=== PATIENT | female | born 1980 | race Caucasian/White ===

== ENCOUNTER 2016-08-16 12:01 | Inpatient (IN) | payer OTHER ==
[~2016-08-16] VITALS: Ht 167.6 cm; Wt 94.8 kg
[2016-08-16 14:25] LABS: ABSOLUTE BASOPHIL COUNT 0 /CUMM (0.0-0.2); ABSOLUTE EOSINOPHIL COUNT 0 /CUMM (0.0-0.7); ABSOLUTE GRANULOCYTE CT 6.6 /CUMM (1.4-6.5); ABSOLUTE LYMPH COUNT 1.9 /CUMM (1.2-3.4); ABSOLUTE MONOCYTE COUNT 0.4 /CUMM (0.10-0.60); BASOPHIL % 0.3 % (0.0-2.0); EOSINOPHIL % 0.5 % (0-5); GRANULOCYTE % 73.6 % (42.2-75.2); HEMATOCRIT 35.1 % (37-47); MEAN CORPUSCULAR HGB CONC 33.3 G/DL (33.0-37.0); MEAN PLATELET VOLUME 9.8 FL (7.4-10.4); PLATELET COUNT 154 /CUMM (130-400); RBC DISTRIBUTION WIDTH 16.2 % (11.5-14.5); RED BLOOD CELL CT 4.03 /CUMM (4.20-5.40); WHITE BLOOD CELL COUNT 8.9 /CUMM (4.8-10.8)
--- NOTE | 2016-08-16 15:30 | PN- OBGYN ---
Surgical Brief Attending Note Brief Attending Note: 36 year old @ 40+5 weeks. planned IOL for the am. Sent from office for nonreactive NST. Pt had BPP 8/8. Upon monitoring, FHR reactive, cat 1. baseline 140s. cvx 1/50/post/soft /-2Pt counseled on cervical ripening and was agreeable. Cheung balloon attempted x 2 but unsuccessful. Pt with low tolerance to speculum and digital exams. Misoprostol 25 micrograms placed .
--- NOTE | 2016-08-16 16:01 | History & Physical ---
General Information and HPI MD Statement: I have seen and personally examined MACIE SCHAEFER and documented this H&P. The patient is a 36 year old female at [40+] weeks and [5] days gestation who presented with a chief complaint of [prolonged monitoring]. Source of Information: patient Exam Limitations: no limitations History of Present Illness: 36 year old female. Presents for prolonged monitoring. Had a BPP in office 03/14 for AMA. NST was nonreactive. Sent to [facility] for further monitoring. Scheduled for IOL in AM with Dr. Escoto. Per Dr. Escoto, cervix 1cm, post. Allergies/Medications Allergies: Coded Allergies: avocado (Severe, 08/16/16) banana (Severe, SWELLING 08/16/16) Uncoded Allergies: Allergy Other N Food Allergies BANNANAS AND AVACADO EYES SWELL Med Allergies N Compliance With Home Meds: GOOD Past History warp scouring vat tender History : 5 Para: 2 Last Menstrual Period: 4.2.16 Estimated Delivery Date: 08.11.16 Past warp scouring vat tender History: x 2, largest 7'10 Medical History Blood Transfusion Hx: No Neurological: NONE Cardiovascular: NONE Respiratory: asthma, asthma Dx in high school. inhaler prn. Gastrointestinal: NONE Hepatic: NONE Renal: NONE Musculoskeletal: NONE Psychiatric: NONE Endocrine: NONE Surgical History Pertinent Surgical History: none Past Family/Social History Psychosocial History Smoking Status: Never Smoked Review of Systems Review of Systems Constitutional: Reports: no symptoms. EENTM: Reports: no symptoms. Cardiovascular: Reports: no symptoms. Respiratory: Reports: no symptoms. GI: Reports: no symptoms. Genitourinary: Reports: see HPI. Musculoskeletal: Reports: no symptoms. Skin: Reports: no symptoms. Neurological/Psychological: Reports: no symptoms. Hematologic/Endocrine: Reports: no symptoms. Immunologic/Allergic: Reports: no symptoms. All Other Systems: Reviewed and Negative Exam & Diagnostic Data Last 24 Hrs of Vital Signs/I&O Intake & Output 08/16 1600 08/16 0800 08/16 0000 Intake Total Output Total Balance Patient 209 lb Weight Obstetric Exam Wgt Gained During : 45 Pelvimetry: proven to 7'10" Dilation (cm): 1 Effacement (%): 50 Station: -2 Membranes: intact Fluid: unknown Fundal Height (cm): 40 Multiple Gestation? No Contractions: occ #1 - FHR Baseline: 140 Category: 1 Estimated Weight: 81/2 lbs Presentation: vtx Patient for Induction? Yes Gan Score Gan Score Response Value Cervix Position: posterior 0 Cervix Consistency: soft 2 Cervix Effacement: 30-50% 1 Cervix Dilation: 1-2 cm 1 Total 4 Physical Exam General Appearance Alert, Oriented X3, Cooperative, No Acute Distress Cardiovascular Regular Rate Lungs Normal Air Movement Abdomen Soft, No Tenderness, gravid Neurological Normal Gait, Normal Speech, Strength at 5/5 X4 Ext Extremities No Clubbing, No Cyanosis, No Edema Reproductive (FEMALE) Normal female genitalia Labs Blood Type & Rh: Apos Antibody Screen: neg Hct/Hgb & Platelets #1: 12.8 39.3 234 Hct/Hgb & Platelets #2: 10.2 30.9 177 Rubella: imm VDRL #1: neg VDRL #2: neg HbsAg: neg HIV #1: neg HIV #2 neg 1 Hr P 3 Hr PG: wnl Group B Strep: neg Initial Ultrasound: 8.4 Anatomy Ultrasound: 20.3, post federico, nl anatomy, XY Genetic Testing: MSAFP neg for NTD, neg NT, nl hgb elec Last 24 Hrs of Labs/Candelario: Laboratory Tests 08/16/16 1400: CBC w Diff NO MAN DIFF REQ, RBC 4.03 L, MCV 87.0, MCH 29.0, RDW 16.2 H, MPV 9.8, Gran % 73.6, Lymphocytes % 21.1, Monocytes % 4.5, Eosinophils % 0.5, Basophils % 0.3, Absolute Granulocytes 6.6 H, Absolute Lymphocytes 1.9, Absolute Monocytes 0.4, Absolute Eosinophils 0, Absolute Basophils 0, PUBS MCHC 33.3 08/16/16 1230: Urinalysis LIGHT H, Urine Color YEL, Urine Clarity CLEAR, Urine pH 6.5, Ur Specific Martin 1.010, Urine Protein NEG, Urine Ketones NEG, Urine Nitrite NEG, Urine Bilirubin NEG, Urine Urobilinogen 0.2, Ur Leukocyte Esterase TRACE H, Ur Microscopic SEDIMENT EXAMINED, Urine RBC RARE, Urine WBC RARE, Ur Epithelial Cells RARE, Urine Hemoglobin NEG, Urine Glucose NEG Assessment/Plan Assessment/Plan: 36 year old female. 40+5 weeks. Elective IOL for prolonged . remarkable for AMA and abnormal 1 hr GTT but nl 3hr. Patient counseled on r/b/a of cervical ripening and induction of labor including persistent contractions. If at any time, persistent contractions that do not resolve and cause distress, may need a delivery. Questions answered. Desired to proceed. I attempted to place david balloon catheter x 2 but pt did not tolerate well. Misoprostol was then inserted instead. As Ranked By This Provider Problem List: 1. Core Measures/Miscellaneous Venous Thromboembolism VTE Risk Factors: / VTE Contraindications: No Contraindications VTE Prophylaxis Ordered Inpt: Early Ambulation VTE Diagnosis: No Beta Aiden Is Beta Aiden a Home Med? No Antibiotics Is Patient on Antibiotics? No
--- NOTE | 2016-08-17 01:40 | Labor & Delivery Summary ---
Delivery Summary Vaginal Delivery: Vaginal: vertex Episiotomy/Lacerations: Episiotomy/Lacerations: 1ST DEGREE Repair: 3.0 Anesthesia: EPIDURAL Placenta: Placenta: spontanteous, normal, 3 vessel Anesthesia: block Baby's Weight: 7.10 Apgars - 1 Min: 8 Apgars - 5 Min: 9 Additional Comments: The patient progressed to fully dilated and then labored down. heart tracing was reassuring. She pushed and delivered the head atraumatically. A nuchal cord was encountered it was too tight to reduce on the perineum. The cord was clamped and cut. The infant was delivered without complication. Good cry was noted. was dried, estimated and placed on maternal abdomen. First degree LAC was repaired without complication. Placenta was delivered intact. The patient tolerated repair well.
[2016-08-18 00:56] VITALS: BP 120/59
[2016-08-18 08:30] LABS: ABSOLUTE BASOPHIL COUNT 0 /CUMM (0.0-0.2); ABSOLUTE EOSINOPHIL COUNT 0.1 /CUMM (0.0-0.7); ABSOLUTE GRANULOCYTE CT 6.9 /CUMM (1.4-6.5); ABSOLUTE LYMPH COUNT 2.8 /CUMM (1.2-3.4); ABSOLUTE MONOCYTE COUNT 0.4 /CUMM (0.10-0.60); BASOPHIL % 0.4 % (0.0-2.0); EOSINOPHIL % 0.8 % (0-5); GRANULOCYTE % 67.4 % (42.2-75.2); HEMATOCRIT 32.8 % (37-47); MEAN CORPUSCULAR HGB 29.5 PG (27.0-31.0); MEAN CORPUSCULAR HGB CONC 33.6 G/DL (33.0-37.0); MEAN CORPUSCULAR VOLUME 87.9 FL (81.0-99.0); MEAN PLATELET VOLUME 9.7 FL (7.4-10.4); PLATELET COUNT 164 /CUMM (130-400); RBC DISTRIBUTION WIDTH 16.5 % (11.5-14.5); RED BLOOD CELL CT 3.73 /CUMM (4.20-5.40); WHITE BLOOD CELL COUNT 10.3 /CUMM (4.8-10.8)
--- NOTE | 2016-08-18 09:17 | PN- OBGYN ---
Surgical Brief Attending Note Brief Attending Note: PPD #1 pt is resting in bed, no complaints, tolerate diet, void without difficulties, ambulating well PE: VSS General: NAD Abdomen: soft, nontender, uterus firm , fundus below umbilicus, lochia mild Ext: DCT (-) A/P: 36 yo, s/p , PPD#1 1. encourage ambulation 2. pain management as needed 3. pt request circumcision for the baby, R/B/A of elective circumcison d/w pt in detail, she understand. all questions answered, informed consent obtained. 4.RT PP care
[2016-08-19] MEDS ORDERED: PERCOCET 5-3251 EACH PO (08:05)
[2016-08-19] MEDS ORDERED: IBUPROFEN100 MG/52 PO (08:05)
--- NOTE | 2016-08-19 08:23 | PN- OBGYN ---
Surgical Brief Attending Note Brief Attending Note: PPD#2 pt is resting in bed, no complaints. PE: VSS CV RRR lungs CTA B/L Abdomen: soft, nontender, uterus firm, fundus below umbilicus. ;ochia mild Ext: DCT (-) A/P:36yo ,s/p , PPD #2 1. encourage ambulation 2. pain management as needed 3.will d/c home, f/u in office in 2 wks and 6 wks, precautions given, she understand.
== END 2016-08-19 11:10 | DRG 775 ==
LOC: CBCO 12:01 → GNO 13:30
PROVIDERS: ADMIT Obstetrics & Gynecology
PROC: 0HQ9XZZ Repair Perineum Skin, External Approach (ICD-10-PCS; principal; 2016-08-17)
PROC: 10E0XZZ Delivery of Products of Conception, External Approach (ICD-10-PCS; 2016-08-17)
DX: O70.0 First degree perineal laceration during delivery (principal); O69.1XX0 Labor and delivery complicated by cord around neck, with compression, not applicable or unspecified; Z3A.40 40 weeks gestation of pregnancy; Z37.0 Single live birth
CPT/HCPCS: GNOP; GNOS; 81001; 84112; G0463; J0595; J7120